=== PATIENT | female | born 1965 | race Caucasian/White ===

== ENCOUNTER → 2024-09-17 09:49 | Outpatient (REF) | payer OTHER, SELFPAY | LOC: HWWDC 09:49 | PROVIDERS: ATTENDING PHYSICIAN Advanced Practice Midwife; FAMILY PHYSICIAN Family Medicine | DX: Z12.31 Encounter for screening mammogram for malignant neoplasm of breast (principal) | CPT/HCPCS: 77063; 77067 ==

== ENCOUNTER 2024-11-23 14:51 | Emergency (ER) | payer OTHER, SELFPAY ==
[2024-11-23 14:58] VITALS: BP 144/78
[2024-11-23] MEDS: DUONEB 3 ML INH (17:44)
[2024-11-23] MEDS: DELTASONE 40 MG PO (17:44)
--- NOTE | 2024-11-23 17:45 | ED.GENMED ---
History of Present Illness
General
Chief Complaint: Breathing Problem
Source: patient and family (Daughter who is at the bedside)
Exam Limitations: none
Time Seen by Provider: 11/23/24 17:22
Nursing documentation reviewed up to this point in time: agreed with
History of Present Illness
History of Present Illness:
The patient is a 59-year-old female the past medical history of multiple sclerosis who reports 5 days of low-grade fever, cough and congestion. Patient reports he went to urgent care today for increased work of breathing. Patient reports she was
given albuterol inhaler and a chest x-ray was done but she does not know the report of the chest x-ray. While in urgent care, due to her ongoing shortness of breath, she was encouraged to come to the emergency department. Patient tested negative
for flu and COVID today at the urgent care center. Patient reports she has not had any Tylenol or Motrin since 2 AM this morning. She denies chest pain. She denies a history of asthma and COPD. She denies leg pain and leg swelling. She denies a
history of heart disease.
Past History
Past History
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
ED Past Surgical History: Gynecological (), Tonsilectomy and Other (L wrist fx)
Social History
Tobacco: Non-smoker
Alcohol: None
Drug: None
Personal:
Living: with family
Employment: Employed
Family History
Family History: Other ([place], stroke)
Review of Systems
Review of Systems
Allergies reviewed?: Yes
All Other Systems: ROS reviewed and negative except as documented in HPI and ROS
Constitutional: Reports fever and fatigue
EENT: Reports other (Nasal congestion, mild sore throat)
Respiratory: Reports cough and trouble breathing
Cardiac: Reports no symptoms
ABD/GI: Reports no symptoms
: Reports no symptoms
Musculoskeletal: Reports no symptoms
Skin: Reports no symptoms
Neurological: Reports no symptoms
Endocrine: Reports no symptoms
Hematologic/Lymphatic: Reports no symptoms
Psychiatric: Reports no symptoms
Phy Exam
Physical Exam
Physical Exam:
Physical Exam
General: Patient appears nontoxic and well but is coughing. Patient sounds nasally congested and slightly hoarse
Neck: supple. no meningeal signs. normal psoterior pharynx. No pharyngeal erythema or exudate. No cervical lymphadenopathy. No stridor
Heart: s1/s2 regular rate and rhythm, no murmur. equal radial pulses.
Lungs: Mild tachypnea with speaking, but speaks in full sentences. Inspiratory and expiratory wheezing on lung exam. No crackles heard
Abdomen: normal bowel sounds. not tender. no CVAT
Neuro: alert and oriented. no focal neurological deficits
Skin: no rash
Psychiatric: well kept. interactive and cooperative
Extremities: no edema. no calf tenderness. negative homans. good distal pulses
Scores
Heart Failure Risk
Heart Failure Risk Score: Not Applicable
Course
Orders/Labs/Results
Orders:
Orders
11/23/24 15:01
Electrocardiogram (*1) Urgent
Reason for Study: Shortness of Breath
EKG- Treatment ONCE
11/23/24 17:37
Ipratropium/Albuterol Sulfate [Duoneb] 3 ml INH R NOW ONE
Prednisone [Deltasone] 40 mg PO NOW STA
11/23/24 18:[address] Non Medication Order As Directed
Physician Order: walking pulse ox
Above order entered?: Yes
11/23/24 18:34
Doxycycline [Vibramycin] 100 mg PO NOW STA
Vital Signs
Initial and Last Documented VS:
Initial Vital Signs
Temp Pulse Resp BP Pulse Ox
98.5 F 101 16 144/78 98
11/23/24 14:58 11/23/24 14:58 11/23/24 14:58 11/23/24 14:58 11/23/24 14:58
Last Documented Vital Signs
Temp Pulse Resp BP Pulse Ox
98.5 F 88 19 117/66 93
11/23/24 14:58 11/23/24 18:00 11/23/24 18:00 11/23/24 17:47 11/23/24 18:27
MDM/Problems Addressed
Differential Diagnosis Includes:
Viral pneumonia, bacterial pneumonia, acute bronchospasm, acute CHF
MDM/Problems Addressed:
Patient presents with acute shortness of breath and cough
Chronic conditions affecting care:
Multiple sclerosis
Acute Exacerbation and/or Progression of Chronic Illness:
Patient denies any acute symptoms of multiple sclerosis at this time and feels it under control. However, given patient has multiple sclerosis, there is increased risk of possible infection due to immunosuppressive meds
*Radiology
Radiology exam reviewed: preliminary read by ED provider (Chest x-ray reviewed from me from urgent care. Shows a left lower lobe infiltrate)
*Pulse Oximetry
Patient hypoxic: no
Comment: Walking pulse ox 93%
*EKG
Interpreted by ED Provider?: NA
*Underliner Interpretation
Rate: Underliner- N/A
*Critical Care Note
Total Time (30-74mins, 75-104mins- exclusive of procedures): 35 minutes
comment:
35 minutes critical care given to the patient including frequent reassessments of her respiratory effort before and after the albuterol neb, reviewing her chest x-ray, and counseling the patient about symptoms to look out for such as increased work
of breathing or lethargy
Data Reviewed
Review of Other/Old Records Reveals: Operative Reports (Operative note reviewed from Dr. Cabral for cholecystectomy in 2021)
Patient Management
Social determinants of health affecting care: Living situation and Strong social support
Escalation/DeEscalation of care consider admission/obs:
Patient's walking pulse ox was 93%. DuoNeb cleared the majority of patient's wheezing however she is still mildly tachypneic with speaking. Patient adamantly wants to go home. She reports she will return immediately if the shortness of breath
worsens. There is no sign of sepsis or toxicity.
ED Attending Note
-
Portions of this chart may have been created with voice recognition software.� Occasional wrong word or��sound alike� substitutions may have occurred due to the inherent limitations of voice recognition software.
Discharge Plan
Departure
Patient Disposition: Home (Routine Discharge)
Date of Disposition: 11/23/24
Time of Disposition: 18:31
Patient with high blood pressure during this ER visit?: No
Covid-19: Not Applicable
Discharge Problem:
Acute respiratory distress, Pneumonia
Instructions: Wheezing in adults - ED discharge instructions, Pneumonia in adults - ED discharge instructions
Prescriptions:
New
albuterol sulfate 90 mcg/actuation HFA aerosol inhaler
1 inh inhalation Q4H PRN (Reason: shortness of breath or wheezing) Qty: 8.5 0RF
doxycycline hyclate 100 mg capsule
100 mg PO BID Qty: 9 0RF
prednisone 10 mg tablet
10 mg PO DAILY Qty: 6 0RF
Rx Instructions:
Take 2 tablets on day 1 and day 2
Take 1 tablet on day 3 and day 4
No Action
glatiramer [Copaxone] 40 MG/ML syringe
40 mg SQ SUTUTH
acetaminophen [Tylenol Extra Strength] 500 MG tablet
1,000 mg PO Q6HPRN PRN (Reason: mild pain) Qty: 1 0RF
ibuprofen 200 MG tablet
400 - 600 mg PO Q6HPRN PRN (Reason: moderate pain) Qty: 1 0RF
oxycodone 5 MG tablet
5 mg PO Q4HPRN PRN (Reason: breakthrough/severe pain) Qty: 7 0RF
tamsulosin [Flomax] 0.4 mg capsule
0.4 mg PO HS Qty: 14 0RF
ondansetron 8 mg tablet,disintegrating
8 mg PO TID PRN (Reason: nausea and vomiting) Qty: 20 0RF
oxycodone 5 mg tablet
5 mg PO Q4H PRN (Reason: pain) Qty: 20 0RF
Referrals:
Cristóbal Macias DO [Family Provider] -
Activity Restrictions/Additional Instructions:
Please return with any increased work of breathing. Please follow-up with your primary care doctor in 2 to 3 days.
Interventions
Interventions:
*Risk Screen - Suicide Last Done: 11/23/24 14:58
*General Assessment Last Done: 11/23/24 17:47
*Neglect/Abuse Screening Last Done: 11/23/24 14:58
*ED- Fall Risk Assessment Last Done: 11/23/24 17:47
*ED COVID-19 Vaccine History Last Done: 11/23/24 17:47
ED- Cardiac Assessment Last Done: 11/23/24 18:15
ED- Pulmonary Assessment Last Done: 11/23/24 18:15
Discharge Date and Time
Print Language: URDU
[2024-11-23 17:47] VITALS: BP 117/66; BMI 25.8
[2024-11-23] MEDS: VIBRAMYCIN 100 MG PO (18:50)
== END 2024-11-23 18:58 | disposition home or self-care (01) ==
LOC: EMR 14:51
PROVIDERS: EMERGENCY PHYSICIAN Emergency Medicine; FAMILY PHYSICIAN Family Medicine
DX: J18.9 Pneumonia, unspecified organism (principal); R06.03 Acute respiratory distress; G35 Multiple sclerosis; Z85.820 Personal history of malignant melanoma of skin
CPT/HCPCS: 94640; 99283; 93005